=== PATIENT | male | born 1995 | race Asian ===

== ENCOUNTER 2017-12-31 05:30 | Emergency (ER) | payer MEDICAID ==
[~2017-12-31] VITALS: Ht 162.6 cm; Wt 68.0 kg
[~2017-12-31 05:30] MED LIST: ALBU17AE26
[2017-12-31 05:32] VITALS: BP_SYST 142
--- NOTE | 2017-12-31 05:38 | NUR ---
Patient to ER bed 04 to gown for evaluation. Side rails up. Report given to CLAUDIO Car.
--- NOTE | 2017-12-31 05:40 | NUR ---
Pt came in AAOX4 presenting with left side pain. Pt stated he's been having discomfort on his abdomen and left side for couple of days. No medications taken. No other complaint. No fever noted. Has history of asthma and has allergies to amoxicillin. Safety precaution observed. Will continue to monitor Pt.
[2017-12-31] MEDS ORDERED: KETOROLAC TROMETHAMINE 60 MG/2 ML VIAL IM ONE (06:00)
[2017-12-31 06:18] LABS: BILIRUBIN,URINE NEGATIVE (NEGATIVE); CLARITY/URINE CLEAR (CLEAR); COLOR,URINE YELLOW (YELLOW); GLUCOSE,URINE NEGATIVE (NEGATIVE); KETONES,URINE NEGATIVE (NEGATIVE); LEUKOCYTE ESTERASE ,URINE NEGATIVE (NEGATIVE); NITRITE, URINE NEGATIVE (NEGATIVE); PROTEIN URINE NEGATIVE (NEGATIVE); UROBILINOGEN,URINE 0.2 (0.2-1.0)
[2017-12-31 06:19] LABS: BLOOD, URINE TRACE (NEGATIVE)
[2017-12-31 06:22] LABS: BACTERIA,URINE FEW /HPF (None Seen); MUCUS,URINE None Seen /LPF (None Seen); RBC,URINE 0-3 /HPF (0-3); WBC,URINE NONE SEEN /HPF (0-3)
--- NOTE | 2017-12-31 07:00 | NUR ---
MSE performed by Dr. Mittal prior to my shift.
--- NOTE | 2017-12-31 07:10 | NUR ---
Pt report received. Pt sitting up in bed, c/o Left flank pain. Denies dysuria, no N/V noted at this time. MD aware of presenting complaint.
--- NOTE | 2017-12-31 07:15 | NUR ---
Dr. Falcon at bedside.
[2017-12-31 07:33] VITALS: BP_SYST 124
--- NOTE | 2017-12-31 07:33 | NUR ---
Patient given written and verbal discharge instructions and verbalizes understanding. ER MD discussed with patient the results and treatment provided. Patient in stable condition. ID arm band removed. Rx of Ibuprofen and Flexeril given. Patient educated on pain management and to follow up with PMD. Pain Scale 2/10. Opportunity for questions provided and answered. Medication side effect fact sheet provided.
== END 2017-12-31 07:33 | disposition home or self-care (01) ==
LOC: SED 05:30
DX: R10.9 Unspecified abdominal pain (principal); F32.9 Major depressive disorder, single episode, unspecified; J45.909 Unspecified asthma, uncomplicated; Z88.1 Allergy status to other antibiotic agents
CPT/HCPCS: 74176; 81000; 96372; 99285; J1885

== ENCOUNTER 2018-08-18 01:43 | Emergency (ER) | payer MEDICAID ==
[~2018-08-18] VITALS: Ht 162.6 cm; Wt 65.8 kg
[2018-08-18 01:47] VITALS: BP_SYST 129
[2018-08-18 02:53] VITALS: BP_SYST 123
== END 2018-08-18 02:53 | disposition home or self-care (01) ==
LOC: SED 01:43
DX: R51 Headache (principal); J45.909 Unspecified asthma, uncomplicated; F32.9 Major depressive disorder, single episode, unspecified; Z88.1 Allergy status to other antibiotic agents
CPT/HCPCS: 99283

== ENCOUNTER 2018-10-06 18:35 | Emergency (ER) | payer MEDICAID ==
[~2018-10-06] VITALS: Ht 162.6 cm; Wt 68.0 kg
[2018-10-06 18:45] VITALS: BP_SYST 138
--- NOTE | 2018-10-06 18:45 | NUR ---
Placed in room 02 . Placed on cardiac monitor technician, blood pressure machine and pulse oximeter. To gown for exam. Side rails up. Report given to CLAUDIO Arias
--- NOTE | 2018-10-06 18:50 | NUR ---
Patient comes to ER in personal vehicle accompanied by friend. Patient is AOx4, verbal and ambulatory. Patient has complaint of chest pain to left side since about 2pm today. Says it would not go away so he came in to ER. Patient denies prior cardiac history and is a recreational smoker. No other complaint or injury at this time.
--- NOTE | 2018-10-06 19:12 | NUR ---
RT at bedside for ABG.
[2018-10-06 19:32] LABS: BASOPHILS % (AUTO) 0.7 % (0.0-2.0); EOSINOPHILS % (AUTO) 0.5 % (0.0-4.0); HEMATOCRIT 46.1 % (36-54); HEMOGLOBIN 15.9 g/dL (14.0-18.0); LYMPHOCYTES # (AUTO) 1.5 K/uL (1.0-5.5); LYMPHOCYTES % (AUTO) 25.1 % (20.5-51.5); MEAN CORPUSCULAR HEMOGLOBIN 31 pg (27-31); MEAN CORPUSCULAR HGB CONC 35 % (32-36); MEAN CORPUSCULAR VOLUME 89 fL (79.0-98.0); MONOCYTES # (AUTO) 0.3 K/uL (0.0-1.0); MONOCYTES % (AUTO) 5.4 % (1.7-9.3); NEUTROPHILS % (AUTO) 68.3 % (40.0-70.0); PLATELET COUNT (AUTO) 254 K/uL (130-430); RED BLOOD CELL COUNT(AUTO) 5.16 MIL/uL (4.2-6.2); RED CELL DISTRIBUTION WIDTH 12.6 % (9.0-15.0); WHITE BLOOD COUNT (AUTO) 5.9 K/uL (4.8-10.8)
[2018-10-06 19:35] LABS: BILIRUBIN,URINE NEGATIVE (NEGATIVE); BLOOD, URINE NEGATIVE (NEGATIVE); CLARITY/URINE CLEAR (CLEAR); COLOR,URINE YELLOW (YELLOW); GLUCOSE,URINE NEGATIVE (NEGATIVE); KETONES,URINE NEGATIVE (NEGATIVE); LEUKOCYTE ESTERASE ,URINE NEGATIVE (NEGATIVE); NITRITE, URINE NEGATIVE (NEGATIVE); PH,URINE 7.5 (5.0-8.0); PROTEIN URINE NEGATIVE (NEGATIVE); UROBILINOGEN,URINE 0.2 (0.2-1.0)
[2018-10-06 19:47] LABS: PROTHROMBIN TIME 9.8 SECS (9.5-12.5)
[2018-10-06 19:49] LABS: BARBITURATE, URINE NEGATIVE (NEG <=200); BENZODIAZEPINE, URINE NEGATIVE (NEG <=150); CANNABINOID, URINE NEGATIVE (NEG <=50); COCAINE, URINE NEGATIVE (NEG <=150); METHAMPHETAMINES SCREEN,URINE NEGATIVE (NEG <=500); OPIATE, URINE NEGATIVE (NEG <=100); PHENCYCLIDINE SCREEN,URINE NEGATIVE (NEG <=25); UR TRICYCLIC ANTIDEPRESSANTS NEGATIVE (NEG <=300); URINE AMPHETAMINE NEGATIVE (NEG <=500); URINE METHADONE NEGATIVE (NEG <=200); URINE OXYCODONE SCREEN NEGATIVE (NEG <=100); URINE PROPOXYPHENE SCREEN NEGATIVE (NEG <=300)
[2018-10-06 19:50] LABS: CALCIUM 9.2 mg/dL (8.4-11.0); CREATININE 0.7 mg/dL (0.55-1.30); POTASSIUM 3.6 mmol/L (3.5-5.1)
[2018-10-06 19:56] LABS: ALBUMIN 4.1 g/dL (3.4-4.8); TOTAL BILIRUBIN 0.6 mg/dL (0.0-1.0)
--- NOTE | 2018-10-06 20:00 | NUR ---
Pt resting comfortably in bed, no signs of acute distress. Will cont. to monitor.
[2018-10-06 20:20] LABS: ERYTHROCYTE SEDIMENTATION RATE 6 MM/HR (0-15)
[2018-10-06] MEDS ORDERED: KETOROLAC TROMETHAMINE 60 MG/2 ML VIAL IM ONE (21:15)
--- NOTE | 2018-10-06 22:00 | NUR ---
Pt resting comfortably in bed, no signs of acute distress. Will cont. to monitor.
[2018-10-06 23:00] VITALS: BP_SYST 138
--- NOTE | 2018-10-06 23:00 | NUR ---
Note neva in ED - 10/07/18 at 0155 by [email or web address] Pt resting comfortably in bed, no signs of acute distress. Will cont. to monitor.
--- NOTE | 2018-10-06 23:00 | NUR ---
Patient given written and verbal discharge instructions and verbalizes understanding. ER MD Dr. Ring discussed with patient the results and treatment provided. Patient in stable condition. ID arm band removed. Rx of norco given. Patient educated on pain management and to follow up with PMD. Pain Scale 0/10. Opportunity for questions provided and answered. Medication side effect fact sheet provided.
== END 2018-10-06 23:00 | disposition home or self-care (01) ==
LOC: SED 18:35
DX: S22.32XA Fracture of one rib, left side, initial encounter for closed fracture (principal); F32.9 Major depressive disorder, single episode, unspecified; J45.909 Unspecified asthma, uncomplicated; Z88.1 Allergy status to other antibiotic agents
CPT/HCPCS: 36415; 36600; 71045; 80053; 80307; 81003; 82803; 83880; 84484; 85025; 85610; 85651; 93005; 96372; 99284; J1885

== ENCOUNTER 2018-12-25 01:02 | Emergency (ER) | payer MEDICAID ==
[~2018-12-25] VITALS: Ht 165.1 cm; Wt 66.7 kg
[2018-12-25 01:13] VITALS: BP_SYST 151
[2018-12-25 03:11] VITALS: BP_SYST 135
== END 2018-12-25 03:11 | disposition home or self-care (01) ==
LOC: SED 01:02
DX: J02.9 Acute pharyngitis, unspecified (principal); J45.909 Unspecified asthma, uncomplicated; F32.9 Major depressive disorder, single episode, unspecified; Z88.1 Allergy status to other antibiotic agents
CPT/HCPCS: 99281

== ENCOUNTER 2019-06-06 19:06 | Emergency (ER) | payer MEDICAID ==
[~2019-06-06] VITALS: Ht 162.6 cm; Wt 63.5 kg
[2019-06-06 19:31] VITALS: BP_SYST 141
--- NOTE | 2019-06-06 19:31 | NUR ---
Patient triaged and placed in waiting room. VSS and patient appears in no acute distress at this time. Accompanied by mother, awaiting available bed, and MD notified of need for MSE.
--- NOTE | 2019-06-06 20:15 | NUR ---
Pt ambulatory to bed hallway for evaluation
--- NOTE | 2019-06-06 20:22 | NUR ---
MARINA Zayas at bedside examining Pt.
--- NOTE | 2019-06-06 20:25 | NUR ---
24 y/o M presents to ER w/ c/o of ABD pain intermittent that occurred about 2 days ago and has not gone away. Pt states the pain is in the epigastric umbilical region. No associated N/V, SOB, or fever. Pt denies any diarhea. No significant Hx noted. Will continue to monitor.
[2019-06-06] MEDS ORDERED: MAG HYDROX/AL HYDROX/SIMETH 30 ML, LIDOCAINE VISCOUS 2% 15ML (PO) 10 ML, DICYCLOMINE HC... PO ONE ×3 (20:30)
[2019-06-06 20:58] LABS: BASOPHILS % (AUTO) 0.7 % (0.0-2.0); EOSINOPHILS # (AUTO) 0.1 K/uL (0.0-0.4); EOSINOPHILS % (AUTO) 0.8 % (0.0-4.0); HEMOGLOBIN 15.6 g/dL (14.0-18.0); LYMPHOCYTES # (AUTO) 1.4 K/uL (1.0-5.5); LYMPHOCYTES % (AUTO) 21.4 % (20.5-51.5); MEAN CORPUSCULAR HEMOGLOBIN 31 pg (27-31); MEAN CORPUSCULAR HGB CONC 34 % (32-36); MEAN CORPUSCULAR VOLUME 92 fL (79.0-98.0); MONOCYTES # (AUTO) 0.3 K/uL (0.0-1.0); MONOCYTES % (AUTO) 4.9 % (1.7-9.3); NEUTROPHILS # (AUTO) 4.9 K/uL (1.8-7.7); NEUTROPHILS % (AUTO) 72.2 % (40.0-70.0); PLATELET COUNT (AUTO) 234 K/uL (130-430); RED BLOOD CELL COUNT(AUTO) 5.02 MIL/uL (4.2-6.2); RED CELL DISTRIBUTION WIDTH 12.4 % (9.0-15.0); WHITE BLOOD COUNT (AUTO) 6.7 K/uL (4.8-10.8)
[2019-06-06 21:27] LABS: CALCIUM 8.9 mg/dL (8.4-11.0); CREATININE 0.78 mg/dL (0.55-1.30); POTASSIUM 3.5 mmol/L (3.5-5.1)
[2019-06-06 21:34] LABS: ALBUMIN 4.1 g/dL (3.4-4.8); TOTAL BILIRUBIN 0.6 mg/dL (0.0-1.0)
[2019-06-06 21:48] VITALS: BP_SYST 124
--- NOTE | 2019-06-06 21:50 | NUR ---
Patient given written and verbal discharge instructions and verbalizes understanding. ER MD discussed with patient the results and treatment provided. Patient in stable condition. ID arm band removed. Rx of Pepcid, Zofran, Bentyl given. Patient educated on pain management and to follow up with PMD. Pain Scale 0/10. Opportunity for questions provided and answered. Medication side effect fact sheet provided.
== END 2019-06-06 21:48 | disposition home or self-care (01) ==
LOC: SED 19:06
DX: K52.9 Noninfective gastroenteritis and colitis, unspecified (principal); R10.32 Left lower quadrant pain; J45.909 Unspecified asthma, uncomplicated; E07.9 Disorder of thyroid, unspecified; Z88.1 Allergy status to other antibiotic agents
CPT/HCPCS: 36415; 80053; 81002; 83690; 85025; 99283; J2001